=== PATIENT | male | born 2000 | race Two or more races ===

== ENCOUNTER 2022-02-11 17:20 | Emergency (ER) | payer OTHER ==
[~2022-02-11] VITALS: Ht 177.8 cm; Wt 94.8 kg
== END 2022-02-11 21:14 | disposition home or self-care (01) ==
LOC: ER 17:20 → EMR PED 17:20
DX: J10.1 Influenza due to other identified influenza virus with other respiratory manifestations (principal); Z20.822 Contact with and (suspected) exposure to COVID-19